=== PATIENT | female | born 1955 | race Caucasian/White ===

== ENCOUNTER → 2021-03-31 | Outpatient (CLI) | payer MEDICARE ==
[~2021-03-31] MED LIST: CALCAVITD PO; CALCIUM 600 MG PO; ESTMEDA PO; Echinacea400 MG PO; METRIBP PO; MULTIPLE VITAM1 EACH PO; MULVITMINF PO; SERT50 PO
== END | disposition home or self-care (01) ==
LOC: LAB SHORT 09:22 → LAB EV 09:22
DX: R30.9 Painful micturition, unspecified (principal)
CPT/HCPCS: 87086

== ENCOUNTER → 2021-04-03 | Outpatient (CLI) | payer MEDICARE | END | disposition home or self-care (01) | LOC: LAB SHORT 15:44 → LAB 15:44 | DX: R30.9 Painful micturition, unspecified (principal) | CPT/HCPCS: 87086 ==

== ENCOUNTER → 2021-10-29 | Outpatient (CLI) | payer MEDICARE | END | disposition home or self-care (01) | LOC: LAB SHORT 13:25 | DX: R93.89 Abnormal findings on diagnostic imaging of other specified body structures (principal) | CPT/HCPCS: 88305 ==

== ENCOUNTER → 2021-11-27 | Outpatient (CLI) | payer MEDICARE | END | disposition home or self-care (01) | LOC: LAB SHORT 13:06 → PLD 13:06 | DX: N85.8 Other specified noninflammatory disorders of uterus (principal) | CPT/HCPCS: 88305 ==

== ENCOUNTER 2022-08-25 07:15 | Day surgery (SDC) | payer MEDICARE ==
[~2022-08-25] VITALS: Ht 162.6 cm; Wt 69.7 kg
[2022-08-25] MEDS ORDERED: SERT100 PO (07:46)
[2022-08-25] MEDS ORDERED: Echinacea400 MG PO (07:51)
== END 2022-08-25 09:15 | disposition home or self-care (01) ==
LOC: ORSCSDS 07:15
PROVIDERS: Ophthalmology
PROC: 08DK3ZZ Extraction of Left Lens, Percutaneous Approach (ICD-10-PCS; principal; 2022-08-25 08:30)
DX: H25.12 Age-related nuclear cataract, left eye (principal); I10 Essential (primary) hypertension; K21.9 Gastro-esophageal reflux disease without esophagitis; F41.8 Other specified anxiety disorders; R51.9 Headache, unspecified; Z79.899 Other long term (current) drug therapy
CPT/HCPCS: J2001; J2250; J3010; J3301; J7040; V2632

== ENCOUNTER → 2023-01-04 | Outpatient (CLI) | payer MEDICARE ==
[~2023-01-04] MED LIST changes: +SERT100 PO; +VITAMIN B-122000 MC1
== END ==
LOC: LAB 10:12 → LAB SHORT 10:12
DX: L08.0 Pyoderma (principal)
CPT/HCPCS: 87070; 87205

== ENCOUNTER 2023-01-05 08:16 | Day surgery (SDC) | payer MEDICARE ==
[~2023-01-05] VITALS: Ht 162.6 cm; Wt 69.5 kg
[~2023-01-05 08:16] MED LIST changes: -VITAMIN B-122000 MC1
[2023-01-05] MEDS ORDERED: VITAMIN B-122000 MC1 (08:47)
--- NOTE | 2023-01-05 08:51 | NUR ---
01/05/23 0851 Kate West AT 0846 PLEDGET AT 0848
== END 2023-01-05 10:20 | disposition home or self-care (01) ==
LOC: ORSCSDS 08:16
PROVIDERS: Ophthalmology
PROC: 08DJ3ZZ Extraction of Right Lens, Percutaneous Approach (ICD-10-PCS; principal; 2023-01-05 09:30)
DX: H25.11 Age-related nuclear cataract, right eye (principal); Z96.1 Presence of intraocular lens; I10 Essential (primary) hypertension; K21.9 Gastro-esophageal reflux disease without esophagitis; Z79.899 Other long term (current) drug therapy
CPT/HCPCS: J2001; J2250; J3010; J3301; J7040; V2632

== ENCOUNTER → 2024-11-01 | Outpatient (CLI) | payer MEDICARE ==
[~2024-11-01] MED LIST changes: +VITAMIN B-122000 MC1
== END ==
LOC: LAB SHORT 08:50 → LAB 08:50
DX: N39.0 Urinary tract infection, site not specified (principal)
CPT/HCPCS: 87086